=== PATIENT | female | born 1930 | race Caucasian/White ===

== ENCOUNTER 2017-02-07 21:53 | Emergency (ER) | payer MEDICARE, BC ==
[2017-02-07] MEDS ORDERED: FENTANYL PF 100MCG/2ML VIAL IVP ONE (22:06)
--- NOTE | 2017-02-07 22:11 | Emergency Department Record ---
History of Present Illness - General Chief Complaint: Fall Injury Stated Complaint: FALL Time Seen by Provider: 02/07/17 21:57 Source: Patient, Family, EMS Mode of Arrival: EMS Limitations: No limitations - History of Present Illness Initial Comments: 86 yo female presents after a fall. She reports that she was in the kitchen walking into the dining area and is unsure if she passed out as the incident occurred very quickly. She now has right hip pain and was unable to stand or get up. She was noted by EMS to have shortening and rotation of the hip. She did not hit her head for sure. No blood thinners or anti-coagulants. She denies any other injuries or pain except the right hip. No recent illness. PCP is Dr Lemon in [place]. Complaint: Fall Onset/Timin -: Hour(s) When Fall Occurred: Just prior to arrival, 1 hour [employer] Fall Witnessed: No Place Fall Occurred: Home Loss of Consciousness: None Prolonged Down Time?: No Symptoms Prior to Fall: None Location: Pelvis Location - Extremities: Right: Thigh Severity: Moderate Severity scale (1-10): 7 Context: Tripped/slipped - [place] Coma Scale Eye Response: (4) Open spontaneously Motor Response: (6) Obeys commands Verbal Response: (5) Oriented David Total: 15 - Related Data Allergies Allergy/AdvReac Type Severity Reaction Status Date / Time No Known Drug Allergies Allergy Verified 10/29/15 16:45 Travel Screening - Travel/Exposure Within Last 30 Days Have you traveled within the last 30 days?: No Review of Systems Constitutional: Denies: Chills, Fever, Malaise, Weakness Eyes: Denies: Eye discharge ENT: Denies: Congestion, Throat pain Respiratory: Denies: Cough, Dyspnea, Hemoptysis, Stridor, Wheezes Cardiovascular: Denies: Chest pain, Palpitations, Syncope Endocrine: Denies: Fatigue, Polydipsia, Polyuria Gastrointestinal: Denies: Abdominal pain, Diarrhea, Nausea, Vomiting Genitourinary: Denies: Dysuria, Urgency Musculoskeletal: Reports: As per HPI, Arthralgia Skin: Denies: Bruising, Change in color, Rash Neurological: Denies: Headache, Numbness, Weakness Psychiatric: Denies: Anxiety Hematological/Lymphatic: Denies: Blood Clots, Easy bleeding, Easy bruising, Swollen glands Past Medical History - SOCIAL HISTORY Smoking Status: Never smoker Alcohol Use: None Drug Use: None - RESPIRATORY Hx Respiratory Disorders: No - CARDIOVASCULAR Hx Cardio Disorders: No Hx Hypertension: Yes - NEURO Hx Neuro Disorders: Yes Hx Dizziness: Yes - GI Hx GI Disorders: Yes Hx Abdominal Pain: Yes Hx Irritable Bowel: Yes Hx Obstructive Bowel: Yes Hx Wt Loss/Wt Gain: Yes - Hx Genitourinary Disorders: No - ENDOCRINE Hx Endocrine Disorders: No Hx Diabetes: No Hx Thyroid Disease: No - MUSCULOSKELETAL Hx Musculoskeletal Disorders: Yes Hx Arthritis: Yes - PSYCH Hx Psych Problems: No - HEMATOLOGY/ONCOLOGY Hx Hematology/Oncology Disorders: No Family Medical History Any Significant Family History?: No Physical Exam - General General Appearance: Alert, Oriented x3, Cooperative, No acute distress Limitations: No limitations - Head Head exam: Atraumatic, Normocephalic, Normal inspection Head exam detail: negative: Abrasion, Contusion, General tenderness, Hematoma - Eye Eye exam: Normal appearance, PERRL. negative: Conjunctival injection, Periorbital swelling, Scleral icterus - ENT ENT exam: Normal exam. negative: Mucous membranes moist Ear exam: Normal external inspection Nasal Exam: Normal inspection Mouth exam: Normal external inspection - Neck Neck exam: Normal inspection, Full ROM. negative: Tenderness - Respiratory Respiratory exam: Normal lung sounds bilaterally. negative: Respiratory distress, Rhonchi, Stridor, Wheezes - Cardiovascular Cardiovascular Exam: Regular rate, Normal rhythm, Normal heart sounds Peripheral Pulses: 2+: Radial (R), Radial (L) - GI/Abdominal GI/Abdominal exam: negative: Soft, Tenderness - Rectal Rectal exam: Deferred - exam: Deferred - Extremities Extremities exam: Normal capillary refill, Tenderness. negative: Normal inspection, Full ROM Image of Full Body: 1 - tenderness with shortening and external rotation, pain with any ROM, NVI distal at the feet with intact CR, wiggles toes. - Back Back exam: Denies: CVA tenderness (R), CVA tenderness (L) - Neurological Neurological exam: Alert, Normal gait, Oriented X3 - Psychiatric Psychiatric exam: Normal affect, Normal mood - Skin Skin exam: Dry, Intact, Normal color, Warm Course Vital Signs 02/07/17 21:57 Temperature 98.1 F Pulse Rate 110 H Respiratory 18 Rate Blood Pressure 153/109 Pulse Ox 94 L - Reevaluation(s) Reevaluation #1: No acute changes on the CBC or CMP The CT scan demonstrates a right comminuted IT fracture of the hip. 02/07/17 22:49 Reevaluation #2: Message was left with Dr Hi of [facility] [place] Capone of at [facility]. He will admit at [facility]. No acute changes on the labs 02/07/17 22:53 EKG Atrial fibrillation, rate 140, intervals normal, axis left, ST NS changes 02/07/17 22:55 Reevaluation #3: HR 110's Tolerating Cardizem well [facility] called Patient room 469 EMS called 02/07/17 23:57 Medical Decision Making - Lab Data Result diagrams: 02/07/17 22:00 02/07/17 22:00 Disposition Disposition: Transfer Clinical Impression: Atrial fibrillation with RVR Hip fracture Qualifiers: Encounter type: initial encounter Fracture type: closed Laterality: right Qualified Code(s): S72.001A - Fracture of unspecified part of neck of right femur, initial encounter for closed fracture Atrial fibrillation Qualifiers: Atrial fibrillation type: unspecified Qualified Code(s): I48.91 - Unspecified atrial fibrillation Disposition: Acute Care Hospital Transfer Transfer To: [facility] Reason For Transfer: hip fracture, atrial fibrillation with RVR Accepting Physician: Liborio Time Discussed w/Accepting Physician: 23:00 Condition: (1) Good Forms: Patient Portal Access Time of Disposition: 23:00 Quality - Quality Measures Quality Measures: N/A - Blood Pressure Screening Does Patient Have Any of the Following: No Blood Pressure Classification: Hypertensive Reading Systolic Measurement: 153 Diastolic Measurement: 109 Screening for High Blood Pressure: < Pre-Hypertensive BP, F/U Documented > [ [id number]] Pre-Hypertensive Follow-up Interventions: Referral to alternative/primary care provider.
[2017-02-07 22:28] LABS: BASO % 0.8 % (0-6); EOS % 2.4 % (0-6); HEMATOCRIT 41.6 % (35.0-47.0); HEMOGLOBIN 13.9 gm/dl (11.6-16.0); LYMPH % 18.7 % (16-45); MEAN CELL VOLUME 87.4 fl (81-97); MEAN CORPUSCULAR HEMOGLOBIN 29.2 pg (27-33); MEAN CORPUSCULAR HGB CONC 33.4 g/dl (32-36); MEAN PLATELET VOLUME 10.4 fl (7.4-10.4); MONO % 12.1 % (0-9); PLATELET COUNT 276 K/uL (130-400); RED BLOOD COUNT 4.76 M/uL (3.80-5.40); RED CELL DISTRIBUTION WIDTH 13.2 % (11.5-14.5); WHITE BLOOD COUNT W/O DIFF 7.1 K/uL (4.2-12.2)
[2017-02-07 22:30] LABS: ALB/GLOB RATIO 1.5 (1.1-1.8); ALBUMIN 4.3 gm/dL (3.5-5.0); ALKALINE PHOSPHATASE 69 U/L (38-126); ALT/SGPT 40 U/L (9-52); ANION GAP 9.5 (7-16); AST/SGOT 27 U/L (14-36); BILIRUBIN,TOTAL 0.59 mg/dL (0.2-1.3); BLOOD UREA NITROGEN 14 mg/dL (7-17); CARBON DIOXIDE 29.5 mmol/L (22-30); CREATININE 1.1 mg/dL (0.52-1.04); EST GLOMERULAR FILTRATION RATE 50 ml/min; GLUCOSE,RANDOM 112 mg/dL (70-110); TOTAL PROTEIN 7.1 gm/dL (6.3-8.2)
[2017-02-07 22:38] LABS: INR 0.94; PROTHROMBIN TIME (PATIENT) 10.1 SECONDS (9.5-12.1)
[2017-02-07 22:46] LABS: TROPONIN I < 0.012 ng/mL (0.00-0.034)
[2017-02-07] MEDS ORDERED: DILTIAZEM 25MG/5ML VIAL IV ONE (22:57)
[2017-02-07] MEDS ORDERED: DILTIAZEM HCL 125 MG in 0.9 % SODIUM CHLORIDE 100ML 100 ML IV SCH (23:00)
[2017-02-07 23:24] LABS: ABO GROUP O; ANTIBODY SCREEN NEGATIVE (NEGATIVE); RH TYPE NEGATIVE
[2017-02-08] MEDS ORDERED: FENTANYL PF 100MCG/2ML VIAL IVP ONE (00:17)
--- NOTE | 2017-02-08 21:31 | CT SCAN REPORT ---
EXAM: CT SCAN HEAD WO CONTRAST HISTORY: FALL, SYNCOPE. COMPARISON: None. ENCOUNTER: Initial. HAND DOMINANCE: Right. TECHNIQUE: Contiguous axial images from the cerebral convexities to the foramen magnum were obtained without IV contrast. FINDINGS: Moderate generalized atrophy of the brain. No acute intracranial hemorrhage, mass effect, or midline shift. No CT evidence of large acute territorial infarct. Mild decreased attenuation in the periventricular white matter of the cerebral hemispheres. Ventricles, basal cisterns, and sulci are within normal limits. Osseous structures and paranasal sinuses are unremarkable. Bilateral lens implants. IMPRESSION: 1. NO ACUTE INTRACRANIAL PROCESS. 2. GENERALIZED ATROPHY OF THE BRAIN WITH MILD CHRONIC SMALL VESSEL ISCHEMIA CHANGE. JOB NUMBER: [id number] MTDD
--- NOTE | 2017-02-08 21:40 | CT SCAN REPORT ---
EXAM: CT SCAN PELVIS WO CONTRAST HISTORY: FALL, ACUTE RIGHT HIP INJURY AND PAIN. COMPARISON: None. ENCOUNTER: Initial. TECHNIQUE: Contiguous axial images from the L4 level to the proximal femora were obtained without contrast. S sagittal and coronal two-dimensional as well as 3D/MIP reformatted images were obtained for better anatomic delineation. 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 Advanced facet arthropathy L5-S1. Sacrum is intact. Mild arthritic change of the SI joints. Mild to moderate osteoarthritic change of the femoroacetabular joints, which are intact. There is a markedly comminuted, mildly displaced intertrochanteric fracture of the right femur. The visceral pelvis demonstrates severe calcification of the abdominal aorta. The visualized loops of small and large bowel are normal. The urinary bladder is markedly distended. No free pelvic fluid. IMPRESSION: 1. ACUTE, MARKEDLY COMMINUTED, MINIMALLY DISPLACED INTERTROCHANTERIC FRACTURE OF THE RIGHT FEMUR. 2. MILD TO MODERATE ARTHRITIC CHANGE OF THE FEMOROACETABULAR JOINTS. 3. MILD ARTHRITIC CHANGE OF THE SI JOINTS. JOB NUMBER: [id number] MTDD
== END 2017-02-08 00:49 | disposition short-term general hospital (02) ==
LOC: ER 21:53
DX: S72.141A Displaced intertrochanteric fracture of right femur, initial encounter for closed fracture (principal); I48.0 Paroxysmal atrial fibrillation; W01.0XXA Fall on same level from slipping, tripping and stumbling without subsequent striking against object, initial encounter; Y92.009 Unspecified place in unspecified non-institutional (private) residence as the place of occurrence of the external cause; I10 Essential (primary) hypertension
CPT/HCPCS: 99285 ×2; 96376; 96365; 96366; 96375; 85025; 85730; 85610; 84484; 80053; 86900; 86901; 86850; 70450; 72192; 93005; 93010; J3010 ×2

== ENCOUNTER 2017-08-14 09:39 | Observation (INO) | payer MEDICARE, BC ==
--- NOTE | 2017-08-14 10:07 | Emergency Department Record ---
History of Present Illness - General Chief Complaint: Dizziness Stated Complaint: DIZZINESS Time Seen by Provider: 08/14/17 09:54 Source: Patient Mode of Arrival: Wheelchair Limitations: No limitations - History of Present Illness Initial Comments: The patient is here due to feeling lightheaded for 24 hours. She feels like she is feeling mildly faint. There is no spinning or rotational sensation. The patient lives at [facility] and had her BP taken and it was elevated so she was sent to the ER. Presently her BP is improved at 190/100. She denies any fall, injury , Cp, SOB, PARUL, or fevers. The patient recently was on a low dose of Lisinopril but that was stopped 2 months ago. Complaint: Lightheadedness Onset/Timin -: Days(s) Timing: Unsure Description: Lightheadedness History of Same: No History of Trauma: No Improves With: Nothing Worsens With: Nothing Associated Symptoms: Denies other symptoms - [place] Coma Scale Eye Response: (4) Open spontaneously Motor Response: (6) Obeys commands Verbal Response: (5) Oriented [place] Total: 15 - Related Data Home Medications Medication Instructions Recorded Confirmed Last Taken Amiodarone HCl [Amiodarone HCl] 100 mg PO ASDIR 08/14/17 08/14/17 Unknown Apixaban [Eliquis] 2.5 mg PO BID 08/14/17 08/14/17 08/14/17 Ferrous Sulfate [Feosol] 325 mg PO DAILY 08/14/17 08/14/17 Unknown Allergies Allergy/AdvReac Type Severity Reaction Status Date / Time No Known Drug Allergies Allergy Verified 10/29/15 16:45 Travel Screening - Travel/Exposure Within Last 30 Days Have you traveled within the last 30 days?: No Review of Systems Constitutional: Denies: Chills, Fever Eyes: Denies: Eye discharge ENT: Denies: Congestion Respiratory: Denies: Cough, Dyspnea Past Medical History - SOCIAL HISTORY Smoking Status: Never smoker Alcohol Use: None Drug Use: None - RESPIRATORY Hx Respiratory Disorders: No - CARDIOVASCULAR Hx Cardio Disorders: Yes Hx Hypertension: Yes Hx Irregular Heartbeat: Yes (afib) - NEURO Hx Neuro Disorders: Yes Hx Dizziness: Yes - GI Hx GI Disorders: Yes Hx Abdominal Pain: Yes Hx Irritable Bowel: Yes Hx Obstructive Bowel: Yes Hx Wt Loss/Wt Gain: Yes - Hx Genitourinary Disorders: No - ENDOCRINE Hx Endocrine Disorders: No Hx Diabetes: No Hx Thyroid Disease: No - MUSCULOSKELETAL Hx Musculoskeletal Disorders: Yes Hx Arthritis: Yes - PSYCH Hx Psych Problems: No - HEMATOLOGY/ONCOLOGY Hx Hematology/Oncology Disorders: No Family Medical History Any Significant Family History?: No Physical Exam - General General Appearance: Alert, Oriented x3, Cooperative, No acute distress - Head Head exam: Atraumatic, Normocephalic, Normal inspection - Eye Eye exam: Normal appearance, PERRL - ENT Throat exam: Normal inspection. negative: Tonsillar erythema, Tonsillar exudate - Neck Neck exam: Normal inspection, Full ROM. negative: Tenderness - Respiratory Respiratory exam: Normal lung sounds bilaterally. negative: Respiratory distress - Cardiovascular Cardiovascular Exam: Regular rate, Normal rhythm, Normal heart sounds - GI/Abdominal GI/Abdominal exam: Soft, Normal bowel sounds. negative: Tenderness - Extremities Extremities exam: Normal inspection, Full ROM, Normal capillary refill. negative: Tenderness - Neurological Neurological exam: Alert. negative: Motor sensory deficit Course Vital Signs 08/14/17 09:43 Temperature 98.0 F Pulse Rate 61 Respiratory 16 Rate Blood Pressure 208/110 Pulse Ox 97 - Reevaluation(s) Reevaluation #1: The patient is doing better at this time. Her repeat Bp is 158/85 and she is able to get up and walk with minimal lightheadedness. I did explain that the lab tests are mildly abnormal regarding his cardiac enzymes so we will admit her to the hospital for monitoring and will recheck her lab tests. 08/14/17 11:28 Reevaluation #2: 2nd EKG: Poss Junctional rhythm at 57. Neg ischemic changes. 08/14/17 11:47 Reevaluation #3: The patient is doing very well at this time. I did discuss the need possibly for a pacemaker and the patient is not ready to make that decision at this time. She would like to be admitted to the hospital overnight and see Dr. Alcala tomorrow. I did discuss the fact that I am not sure if there will be any problems overnight but cannot be sure but the patient is sure that she does not want to go to a larger hospital now and just that she would like to see Dr. Alcala tomorrow. 08/14/17 11:52 Medical Decision Making - Data Complexity MDM Data: Labs Ordered and/or Reviewed, X-Ray Ordered and/or Reviewed, EKG Ordered and/or Reviewed - Lab Data Result diagrams: 08/14/17 10:05 08/14/17 10:05 - EKG Data -: EKG Interpreted by Me EKG: Abnormal EKG (Afib vs junctional rhythm. LVH with repolarization abnormalities.) - Radiology Data Radiology results: Report reviewed (CXR: No acute changes, multiple compression fx's Head CT: Neg for any acute changes.) Disposition Disposition: Admit Clinical Impression: Weakness generalized Disposition: Still a Patient at [facility] Decision to Admit: Admit from ER Decision to Admit Date: 08/14/17 Decision to Admit Time: 11:53 Accepting Physician: Sergio Rayo Discussed w/Accepting Physician: 11:54 Condition: (2) Stable Referrals: [facility] Specialty Clinics [Provider Group] Forms: Patient Portal Access Time of Disposition: 11:54 Quality - Quality Measures Quality Measures: N/A - Blood Pressure Screening View Details: Yes Does Patient Have Any of the Following: Active Dx of HTN Blood Pressure Classification: Hypertensive Reading Systolic Measurement: 208 Diastolic Measurement: 110 Screening for High Blood Pressure: Patient Exclusion, Hx of HTN [G9744]
[2017-08-14 10:32] LABS: HEMATOCRIT 45.5 % (35.0-47.0); HEMOGLOBIN 14.9 gm/dl (11.6-16.0); MEAN CELL VOLUME 84.6 fl (81-97); MEAN CORPUSCULAR HEMOGLOBIN 27.7 pg (27-33); MEAN CORPUSCULAR HGB CONC 32.7 g/dl (32-36); MEAN PLATELET VOLUME 10.6 fl (7.4-10.4); PLATELET COUNT 298 K/uL (130-400); RED BLOOD COUNT 5.38 M/uL (3.80-5.40); RED CELL DISTRIBUTION WIDTH 15.7 % (11.5-14.5); WHITE BLOOD COUNT W/O DIFF 3.9 K/uL (4.2-12.2)
[2017-08-14 10:39] LABS: PLATELET ESTIMATE NORMAL (NORMAL)
[2017-08-14 10:41] LABS: BLOOD UREA NITROGEN 8 mg/dL (8-23); CREATININE 0.9 mg/dL (0.5-0.9); EST GLOMERULAR FILTRATION RATE > 60 mL/min
[2017-08-14 10:44] LABS: GLUCOSE,RANDOM 90 mg/dL (74-109)
[2017-08-14 10:46] LABS: CREATINE PHOSPHOKINASE 68 U/L (26-192)
[2017-08-14 10:50] LABS: CKMB 4.3 ng/mL (<3.77)
[2017-08-14 10:57] LABS: PARTIAL THROMBOPLASTIN TIME 28.1 SECONDS (24.5-39.1)
[2017-08-14 11:00] LABS: THYROID STIMULATING HORMONE 4.47 uIU/mL (0.270-4.20)
[2017-08-14] MEDS ORDERED: ASPIRIN 325 MG TABLET PO ONE (11:54)
[2017-08-14 16:29] LABS: CKMB 3.6 ng/mL (<3.77)
--- NOTE | 2017-08-14 20:16 | History & Physical ---
History of Present Illness - Date of Service Date of Service for History & Physical: 08/14/17 - History of Present Illness Admitting Diagnosis: 1. Afib vs Junctional Rhythm with Dizziness. History of Present Illness: 87yo female with CC of elevated blood pressure and feeling faint. She has history of afib on anticoagulation and pacerone, HTN, IBS, osteoarthritis, and intermittent dizziness. The patient is here due to feeling lightheaded for 24 hours. She feels like she is feeling mildly faint. There is no spinning or rotational sensation. The patient lives at [facility] and had her BP taken and it was elevated so she was sent to the ER. In the ED, her initial BP was 208/110 with rate of 60. Her BP improved after laying down for several minutes. Her EKG showed old anterior Q waves with LVH, and new junctional rhythm. Her 1st set of CE returned with CKMB elevated at 4.3 and Troponin T at 0.011. Her TSH was slightly elevated at 4.47. CXR and CT head both negative for acute changes. Dr. Lawrence had discussed with patient and her daughter that we do not have cardiology currently present and if she needs intervention would have to be transferred. Patient and daughter were absolutely adamant about staying at [facility] and seeing Dr. Alcala, patient's dental therapist, in the morning. 08/14/17- Patient states she is feeling much better. her BP is currently 127/ 80 without any medication intervention and heart rate continues to be 60bpm. She says she is no longer feeling faint, denies headache, vision changes, one-sided or generalized weakness. She denies any chest pain presently or during the past 24H. She denies nausea, chest heaviness, or diaphoresis. There have been no changes in her mental status and she is capable of making her own medical decisions. Daughter has DPOA in the case she wasn't able to make her own decisions. Patient requests to be a DNR. dental therapist: Dr. Alcala Travel Screening - Travel/Exposure Within Last 30 Days Have you traveled within the last 30 days?: No - Travel/Exposure Within Last Year Have you traveled outside the [place] in the last year?: No - Additonal Travel Details Have you been exposed to anyone with a communicable illness?: No - Travel Symptoms Symptom Screening: None Review of Systems Constitutional: Denies: Chills, Fever Eyes: Denies: Eye discharge ENT: Denies: Congestion Respiratory: Denies: Cough, Dyspnea Cardiovascular: Denies: Chest pain Gastrointestinal: Denies: Nausea Neurological: Reports: Vertigo (h/o ), Other (reported pre-syncope). Denies: Abnormal gait, Confusion, Headache, Numbness, Paresthesias, Tingling, Weakness Past Medical History - SOCIAL HISTORY Smoking Status: Never smoker Alcohol Use: None Drug Use: None - RESPIRATORY Hx Respiratory Disorders: No - CARDIOVASCULAR Hx Cardio Disorders: Yes Hx Hypertension: Yes Hx Irregular Heartbeat: Yes (afib) - NEURO Hx Neuro Disorders: Yes Hx Dizziness: Yes - GI Hx GI Disorders: Yes Hx Abdominal Pain: Yes Hx Irritable Bowel: Yes Hx Obstructive Bowel: Yes Hx Wt Loss/Wt Gain: Yes - Hx Genitourinary Disorders: No - ENDOCRINE Hx Endocrine Disorders: No - MUSCULOSKELETAL Hx Musculoskeletal Disorders: Yes Hx Arthritis: Yes - PSYCH Hx Psych Problems: No - HEMATOLOGY/ONCOLOGY Hx Hematology/Oncology Disorders: No Family Medical History Any Significant Family History?: No H&P Meds/Allergies - Allergies Allergies: Allergies Allergy/AdvReac Type Severity Reaction Status Date / Time No Known Drug Allergies Allergy Verified 10/29/15 16:45 - Home Medications Home Medications Medication Instructions Recorded Confirmed Last Taken Amiodarone HCl [Amiodarone HCl] 100 mg PO ASDIR 08/14/17 08/14/17 Unknown Apixaban [Eliquis] 2.5 mg PO BID 08/14/17 08/14/17 08/14/17 Ferrous Sulfate [Feosol] 325 mg PO DAILY 08/14/17 08/14/17 Unknown Loperamide HCl [Loperamide] 2 mg PO QID PRN 08/14/17 08/14/17 Unknown Potassium Chloride [Klor-Con] 20 meq PO QAM 08/14/17 08/14/17 Unknown - Active Medications Active Medications: Current Medications Amiodarone HCl (Pacerone) 100 mg PO DAILY [facility] Apixaban (Eliquis) 2.5 mg PO BID [facility] Aspirin (Ecotrin (Ec)) 325 mg PO DAILY [facility] Ferrous Sulfate (Iron) 325 mg PO DAILY [facility] Gabapentin (Neurontin) 300 mg PO BID [facility] Gabapentin (Neurontin) 100 mg PO BID [facility] Meclizine HCl (Antivert) 25 mg PO BID [facility] Physical Exam - Vital Signs Vital Signs: Vital Signs - Last 24 Hrs Pulse Resp BP 08/14/17 16:00 60 127/80 08/14/17 15:53 16 - General General Appearance: Alert, Oriented x3, Cooperative, No acute distress Limitations: No limitations - Head Head exam: Atraumatic, Normocephalic, Normal inspection - Eye Eye exam: Normal appearance, PERRL - ENT Throat exam: Normal inspection. negative: Tonsillar erythema, Tonsillar exudate - Neck Neck exam: Normal inspection, Full ROM. negative: Tenderness - Respiratory Respiratory exam: Normal lung sounds bilaterally. negative: Respiratory distress - Cardiovascular Cardiovascular Exam: Normal rhythm, Normal heart sounds, Bradycardia - GI/Abdominal GI/Abdominal exam: Soft, Normal bowel sounds. negative: Tenderness - Extremities Extremities exam: Normal inspection, Full ROM, Normal capillary refill. negative: Tenderness - Neurological Neurological exam: Alert. negative: Motor sensory deficit Results - Labs Result Diagrams: 08/14/17 10:05 08/14/17 10:05 Labs Last 24 Hours: Laboratory Results - last 24 hr 08/14/17 16:00 CK-MB (CK-2) 3.6 Troponin T 0.014 H VTE H&P Assessment - Risk for VTE Risk for VTE: Yes Risk Level: High Risk Assessment Date: 08/14/17 Risk Assessment Time: 21:27 VTE Orders Placed or Will Be Placed: Yes Plan - Detailed Diagnosis and Plan (1) Pre-syncope Current Visit: Yes Status: Acute Base Code: R55 - SYNCOPE AND COLLAPSE Comment: 08/14/17- resolving. Patient reportedly felt faint and that is why her BP had been checked in the first place. She denies any headache, vision changes , chest pain, PARUL, weakness, numbness. CT head and CXR were negative for acute changes. EKG showed possible new junctional rhythm with rate of 60bpm. She had her 1st set of CE return with CKMG of 4.3 and Troponin T of 0.011. -continue tele -continue serial enzymes -consult cardiology (2) Acute electrocardiogram changes Current Visit: No Status: Acute Base Code: R94.31 - ABNORMAL ELECTROCARDIOGRAM [ECG] [EKG] Comment: 08/14/17- reviewed old studies available. Had holter performed about one year ago 2/2 episodic dizziness. She had no monitor changes related to her symptoms during that study. About 6 months ago, she presented to our ED for a fall due to dizziness and EKG at that time showed afib with vent rate of 140. she was transferred for orthopedic surgery at that time and has been following with Cardiology since that visit. Today her EKG shows old anterior Q waves and LVH with possible junctional rhythm rate of 57. Amiodorone was added to her medications since her last visit -Patient's dental therapist, Dr. Alcala, is out to [facility] tomorrow and patient wishes to stay at [facility] and be seen by him tomorrow. (3) Chronic hypertension Current Visit: No Status: Acute Base Code: I10 - ESSENTIAL (PRIMARY) HYPERTENSION Priority: High Comment: 08/14/17-improving. BP of 127/80 at time of exam down from 208/110 from earlier today without any medication interventions. Her lisinopril had been discontinued several months ago. -continue to monitor BP q8H (4) DVT prophylaxis Current Visit: Yes Status: Acute Base Code: [id number] - Comment: 08/14/17- patient anticoagulated with eliquis 2.5mg po bid -will continue home medication (5) DNR (do not resuscitate) Current Visit: Yes Status: Acute Base Code: Z66 - DO NOT RESUSCITATE Comment: 08/14/17- Patient request DNR.
[2017-08-14] MEDS: GABAPENTIN 300 MG CAPSULE PO SCH (21:04)
[2017-08-14] MEDS: MECLIZINE 25 MG TABLET PO SCH (21:04)
[2017-08-14] MEDS: GABAPENTIN 100 MG CAPSULE PO SCH (21:05)
[2017-08-14] MEDS ORDERED: APIXABAN 2.5MG TABLET PO SCH (22:00)
[2017-08-15 00:38] LABS: CKMB 3.2 ng/mL (<3.77)
--- NOTE | 2017-08-15 07:28 | RADIOLOGY REPORT ---
EXAM: CHEST, TWO VIEWS HISTORY: VERTIGO, WEAK. TECHNIQUE: AP and lateral views of the chest were obtained. Comparison: Two view chest 05/31/16. FINDINGS: The heart size is within normal limits. Calcification and mild torsion of the aorta. The lungs appear hyperinflated suggesting underlying COPD. When comparison is made with the prior study, no definite acute infiltrate is seen. No pleural effusion or pneumothorax evident. Compression factures involving the bodies of T8, T9, and T12, with some progression in the T8 vertebral fracture compared with the prior study. IMPRESSION: 1. HYPERINFLATION CONSISTENT WITH COPD. NO DEFINITE ACUTE INFILTRATE IS SEEN. 2. CHRONIC COMPRESSION FRACTURES OF T9 AND T12. MODERATE PROGRESSION IN COMPRESSION OF THE BODY OF T8 COMPARED WITH THE PRIOR STUDY. JOB NUMBER: [id number] MTDD
--- NOTE | 2017-08-15 07:32 | CT SCAN REPORT ---
EXAM: EMERGENCY HEAD CT WITHOUT CONTRAST HISTORY: DIZZINESS. TECHNIQUE: Axial CT scan of the head was performed without IV contrast. Comparison: Head CT 02/07/17. FINDINGS: No definite acute intracranial hemorrhage identified. No focal mass effect or midline shift apparent. Moderate generalized atrophy as before. Chronic appearing deep white matter changes again seen, nonspecific, but likely representing some chronic small vessel deep white matter ischemic disease. No definite acute infarct or intracranial mass lesion is seen. No depressed calvarial fracture is evident. IMPRESSION: 1. GENERALIZED ATROPHY WITH CHRONIC APPEARING DEEP WHITE MATTER CHANGES BEFORE. 2. NO DEFINITE ACUTE INTRACRANIAL HEMORRHAGE OR FOCAL MASS EFFECT IDENTIFIED. JOB NUMBER: [id number] [facility]
[2017-08-15] MEDS: GABAPENTIN 100 MG CAPSULE PO SCH (09:39)
[2017-08-15] MEDS: GABAPENTIN 300 MG CAPSULE PO SCH (09:39)
[2017-08-15] MEDS: MECLIZINE 25 MG TABLET PO SCH (09:39)
[2017-08-15] MEDS ORDERED: AMIODARONE HCL 200 MG TABLET PO SCH ×2 (10:00)
[2017-08-15] MEDS ORDERED: ASPIRIN 325 MG TAB ENTERIC-COATED PO SCH (10:00)
[2017-08-15] MEDS ORDERED: FERROUS SULFATE 325 MG TAB PO SCH (10:00)
--- NOTE | 2017-08-15 11:10 | Discharge Summary ---
Providers Discharge Summary Date: 08/15/17 Date of admission: 08/14/17 13:27 Expected Date of Discharge: 08/15/17 Attending physician: SYDNIE SUN Primary care physician: RACHID JIMENEZ D.O. Physical Exam - Vital Signs Vital Signs: Vital Signs - Last 24 Hrs Temp Pulse Pulse Resp BP Pulse Ox 08/15/17 11:00 76 20 94 L 08/15/17 10:00 97.7 F 60 16 132/68 96 08/15/17 08:00 97.5 F L 53 L 16 162/79 94 L 08/15/17 07:41 50 L 08/15/17 03:34 97.5 F L 48 L 15 192/81 98 08/14/17 22:30 95 08/14/17 20:23 60 16 08/14/17 16:00 60 127/80 08/14/17 15:53 16 - General General Appearance: Alert, Oriented x3, Cooperative, No acute distress Limitations: No limitations - Head Head exam: Atraumatic, Normocephalic, Normal inspection - Eye Eye exam: Normal appearance, PERRL - ENT Throat exam: Normal inspection. negative: Tonsillar erythema, Tonsillar exudate - Neck Neck exam: Normal inspection, Full ROM. negative: Tenderness - Respiratory Respiratory exam: Normal lung sounds bilaterally. negative: Respiratory distress - Cardiovascular Cardiovascular Exam: Normal rhythm, Normal heart sounds, Bradycardia - GI/Abdominal GI/Abdominal exam: Soft, Normal bowel sounds. negative: Tenderness - Extremities Extremities exam: Normal inspection, Full ROM, Normal capillary refill. negative: Tenderness - Neurological Neurological exam: Alert. negative: Motor sensory deficit Hospitalization - Hospitalization Admission Diagnosis: 1. Afib vs Junctional Rhythm with Dizziness. - Problem List/Discharge Diagnosis (1) Pre-syncope Status: Acute Base Code: R55 - SYNCOPE AND COLLAPSE Comment: 08/15/17- currently asymptomatic. Her rn document improvement specialist evaluated patijamie today and recommends transfer for placement of pacemaker. -acute care transfer to [facility] (2) Acute electrocardiogram changes Status: Acute Base Code: R94.31 - ABNORMAL ELECTROCARDIOGRAM [ECG] [EKG] Comment: 08/15/17- Patient transferring to [facility] for symptomatic junctional rhythm with goal of pacemaker placement. She is currently asymptomatic and heart rate is stable at 57-60bpm, bp 132/68mmhg. (3) Chronic hypertension Status: Acute Base Code: I10 - ESSENTIAL (PRIMARY) HYPERTENSION Comment: -improving without medication intervention. -continue to monitor BP (4) DVT prophylaxis Status: Acute Base Code: [id number] - Comment: 08/15/17- patient anticoagulated with eliquis 2.5mg po bid -holding medication for pacemaker placement today (5) DNR (do not resuscitate) Status: Acute Base Code: Z66 - DO NOT RESUSCITATE Comment: 08/15/17- Patient request DNR. - Hospitalization Course Disposition: [facility] Transfer Abnormal Labs: Abnormal Lab Results 08/14/17 08/15/17 Range/Units 16:00 00:05 Troponin T 0.014 H 0.017 H (0-0.010) ng/mL Condition at Discharge: (2) Stable Discharge Medications - Discharge Medications Home Medications: Ambulatory Orders Gabapentin [Neurontin] 400 mg PO BID 11/24/14 [Last Taken 08/14/17] Meclizine HCl [Antivert] 25 mg PO DAILY 11/24/14 [Last Taken 08/14/17] Amiodarone HCl 100 mg PO ASDIR 08/14/17 [Last Taken Unknown] Ferrous Sulfate [Feosol] 325 mg PO DAILY 08/14/17 [Last Taken Unknown] Loperamide HCl [Loperamide] 2 mg PO QID PRN 08/14/17 [Last Taken Unknown] Potassium Chloride [Klor-Con] 20 meq PO QAM 08/14/17 [Last Taken Unknown] Apixaban [Eliquis] 2.5 mg PO BID #0 08/15/17 [Last Taken 08/14/17] Discharge Plan - Discharge Instructions Quality Measures - Quality Measures Quality Measures: Advance Directives, Documentation of Current Medications in Medical Record, Elder Maltreatment Screen and Follow-Up Plan, Screening for High Blood Pressure and F/U Documented - Current Medications Quality Measure: Measure #130: Documentation of Current Medications Documentation of Current Medications: <Current Medications Documented/Reviewed> [G8427] - Blood Pressure Screening Quality Measure: Screening for High Blood Pressure and Follow-Up Documented Does Patient Have Any of the Following: Active Dx of HTN Blood Pressure Classification: Hypertensive Reading Systolic Measurement: 208 Diastolic Measurement: 110 Screening for High Blood Pressure: Patient Exclusion, Hx of HTN [G9744] - Advance Directives Quality Measure: Measure #47: Care Plan Advance Directives Established: Yes Advance Directives Information Provided To Patient: No Advance Directives on File: Yes Living Will: Yes Power of Art Historian: Yes Power of Art Historian Name: nargis knight Advance Care Planning: <Care Plan/Decision Maker Documented; Discussed & Documented> [1123F] - Elder Abuse Suspicion Index Screening: Elder Abuse Suspicion Index Screening Rely on people for bathing, dressing, shopping, banking, etc: No Prevented from getting food, clothes, medication, etc: No Made to feel shamed or threatened by someone: No Forced to sign papers or use money against will: No Feel afraid, touched in ways not wanted or hurt physically: No Poor eye contact, withdrawn, malnourished, cuts or bruises: No Screening Result: Negative result EASI Reference Information: Diana SHUKLA, Jeremiah C, Kim D, Linden Skaggs.Development and validation of a tool to assist physicians identification of elder abuse: The Elder Abuse Suspicion Index (EASI ). Journal of Elder Abuse and Neglect, 2008; 20 (3): 276-300. - Elder Maltreatment Screen Quality Measures: Elder Maltreatment Screen and Follow-Up Plan Elder Maltreatment Screen: <Negative, No Follow-Up Plan Required> [G4237]
--- NOTE | 2017-08-15 20:06 | Medical Records Consult ---
DATE OF CONSULTATION: INDICATION: DIZZINESS, BRADYCARDIA, HISTORY OF ATRIAL FIBRILLATION. HISTORY: Most of the information was obtained from the chart. Family members weren't available. The patient has some memory issues. Esperanza Turcios is an 87- year-old female who presented to the [facility] feeling faint. She has a history of a-fib. She has been on Amiodarone 100 mg three times a week. She was on a beta-jolynn prior but that was discontinued due to bradycardia. She has really been fatigued and lightheaded for a few months. She saw the Electrophysiology Service last fall. They recommended that if she continued to show junctional arrhythmias, bradycardia, that she would likely need a pacemaker. There was a question about stopping her Amiodarone but at 100 mg just three times a week, I am not sure that's contributing much to her bradycardia. Her CPK-MB was mildly elevated and troponin was indeterminate. EKG showed junctional rhythm. There is a telemetry strip showing significant bradycardia with significant pauses. The patient was lightheaded during some of these episodes. PAST MEDICAL HISTORY: Heart failure with preserved ejection fraction. Paroxysmal atrial fibrillation. Peripheral vascular disease in the form of mild nonobstructive carotic artery disease. Her last echo in January showed normal LV function, likely diastolic heart failure, mild mitral regurgitation. This was January of 2017. MEDICATIONS: Loperamide 2 mg tablet p.r.n. Gabapentin 400 mg p.o. b.i.d. Meclizine 25 mg daily Iron supplements one daily Eliquis 2.5 mg p.o. b.i.d. She has not been given Eliquis this morning. Her last dose was . Amiodarone 100 mg Friday, Friday, and Friday. SOCIAL HISTORY: Noncontributory. Never smoked. FAMILY HISTORY: Noncontributory. REVIEW OF SYSTEMS: Difficult to some memory issues but she denies any chest pain. Her major complaint was dizziness and fatigue. She denies any cough. No fevers, chills, night sweats. No diarrhea, constipation. No urinary complaints. PHYSICAL EXAMINATION: Vital Signs: Temperature 97.5. Pulse 48. Blood pressure 192/81. Respirations 15. 98% on room air. GENERAL: Alert, in no apparent distress. HEENT: Normocephalic/atraumatic. NECK: Supple. No JVD. No carotid bruits are appreciated. PULMONARY: Clear to auscultation. Poor inspiratory effort. CARDIAC: Bradycardic. Soft 1/6 systolic ejection murmur. ABDOMEN: Nontender, nondistended. Positive bowel sounds. EXTREMITIES: No edema. NEUROLOGIC: Speech is clear. Memory is an issue. LABORATORY: See EMR for complete details. Again, CPK-MB 3.6. Troponin was 0.014. Sodium 140. Potassium 3.6. BUN 8. Creatinine 0.9. White blood cell 3.9. Hemoglobin 14.9. Hematocrit 45.5. Platelets 298. ASSESSMENT/PLAN: SYMPTOMATIC BRADYCARDIA: She likely has a sick sinus syndrome with her paroxysmal a-fib. The only rate-controlling medicine she is on is her Amiodarone but it's a very low dose, 100 mg three times a week, and is not a new medication. I think at this point, she is willing to have a pacemaker placed and I think it would be appropriate at this time. Again, she has not had an Eliquis dose since . That will be continued to be held until her pacemaker is placed, obviously. We will arrange for transfer to [facility]. JOB NUMBER: [id number] [facility]
== END 2017-08-15 11:55 | disposition short-term general hospital (02) ==
LOC: ER 09:39 → MEDSURG 13:27
PROVIDERS: ADMIT Internal Medicine; ATTEND Internal Medicine
DX: I48.0 Paroxysmal atrial fibrillation (principal); I49.2 Junctional premature depolarization; R94.31 Abnormal electrocardiogram [ECG] [EKG]; I50.9 Heart failure, unspecified; R55 Syncope and collapse; R42 Dizziness and giddiness; R53.1 Weakness; I10 Essential (primary) hypertension; M19.90 Unspecified osteoarthritis, unspecified site; Z79.01 Long term (current) use of anticoagulants; K58.9 Irritable bowel syndrome, unspecified
CPT/HCPCS: 99285 ×2; 82550; 85730; 85610; 82553 ×2; 80048; 84443; 84484 ×2; 85027; 71046; 70450; 94760 ×2; 93005 ×2; 93010; G0378 ×2; J3490; 99223; 99233

== ENCOUNTER 2018-01-08 10:08 | Emergency (ER) | payer MEDICARE, BC ==
--- NOTE | 2018-01-08 10:33 | Emergency Department Record ---
History of Present Illness - General Chief Complaint: Fall Injury Stated Complaint: FALL Time Seen by Provider: 01/08/18 10:23 Source: Patient, EMS Mode of Arrival: EMS Limitations: No limitations - History of Present Illness Initial Comments: The patient is here due to a slip and fall at [facility] about 30 minutes ago. She states she got up from the sitting position to fast and then felt minimally dizzy and fell on her R side onto her R hip. She has had that hip replaced in the past. The patient also hit her R lateral supraorbital area on the carpeted floor. There was no LOC and she denies any HO, neck pain, lightheadedness or Cp. The patient does have R hip pain ONLY with movement. MD Complaint: Fall Onset/Timin -: Minutes(s) Fall From: Standing When Fall Occurred: Just prior to arrival Fall Witnessed: Yes, by living facility staff Loss of Consciousness: None Prolonged Down Time?: No Symptoms Prior to Fall: Dizziness Location: Head, Other Severity: Mild Context: Other Associated Symptoms: Denies - David Coma Scale Eye Response: (4) Open spontaneously Motor Response: (6) Obeys commands Verbal Response: (5) Oriented David Total: 15 - Related Data Home Medications Medication Instructions Recorded Confirmed Last Taken Carvedilol [Coreg] 3.125 mg PO BID 01/08/18 01/08/18 01/08/18 Previous Rx's Medication Instructions Recorded Apixaban [Eliquis] 2.5 mg PO BID #0 08/15/17 Acetaminophen [Tylenol 325Mg] 650 mg PO Q6H #25 tablet 01/08/18 Nitrofurantoin Bingham [Macrobid] 100 mg PO BID #14 capsule 01/08/18 Allergies Allergy/AdvReac Type Severity Reaction Status Date / Time No Known Drug Allergies Allergy Verified 01/08/18 10:20 Travel Screening - Travel/Exposure Within Last 30 Days Have you traveled within the last 30 days?: No - Travel/Exposure Within Last Year Have you traveled outside the [place] in the last year?: No - Additonal Travel Details Have you been exposed to anyone with a communicable illness?: No - Travel Symptoms Symptom Screening: None Review of Systems Constitutional: Denies: Chills, Fever Eyes: Denies: Eye discharge ENT: Denies: Congestion Respiratory: Denies: Cough, Dyspnea Past Medical History - SOCIAL HISTORY Smoking Status: Never smoker Alcohol Use: None Drug Use: None - RESPIRATORY Hx Respiratory Disorders: No - CARDIOVASCULAR Hx Cardio Disorders: Yes Hx Hypertension: Yes Hx Irregular Heartbeat: Yes (afib) - NEURO Hx Neuro Disorders: Yes Hx Dizziness: Yes - GI Hx GI Disorders: Yes Hx Abdominal Pain: Yes Hx Irritable Bowel: Yes Hx Obstructive Bowel: Yes Hx Wt Loss/Wt Gain: Yes - Hx Genitourinary Disorders: No - ENDOCRINE Hx Endocrine Disorders: No Hx Diabetes: No Hx Thyroid Disease: No - MUSCULOSKELETAL Hx Musculoskeletal Disorders: Yes Hx Arthritis: Yes - PSYCH Hx Psych Problems: No - HEMATOLOGY/ONCOLOGY Hx Hematology/Oncology Disorders: No Family Medical History Any Significant Family History?: No Physical Exam - General General Appearance: Alert, Oriented x3, Cooperative, No acute distress - Head Head exam: Atraumatic, Normocephalic, Normal inspection Image of Face/Head: 1 - Very superficial laceration with no swelling or bony tenderness. - Eye Eye exam: PERRL, EOMI. negative: Normal appearance - Neck Neck exam: Normal inspection, Full ROM. negative: Lymphadenopathy, Tenderness ( There is no Cspine tenderness.) - Respiratory Respiratory exam: Normal lung sounds bilaterally. negative: Respiratory distress - Cardiovascular Cardiovascular Exam: Regular rate, Normal rhythm, Normal heart sounds - GI/Abdominal GI/Abdominal exam: Soft, Normal bowel sounds. negative: Tenderness - Extremities Extremities exam: Normal inspection, Normal capillary refill. negative: Full ROM, Joint swelling, Pedal edema, Tenderness - Neurological Neurological exam: Alert. negative: Motor sensory deficit Course Vital Signs 01/08/18 10:22 Temperature 98.1 F Pulse Rate 72 Respiratory 18 Rate Blood Pressure 223/114 Pulse Ox 96 - Reevaluation(s) Reevaluation #1: The patient is doing very well at this time. She denies any HO, neck pain, back pain or hip pain and is up walking normally with her walker. I did discuss the neg xrays with her and the need for F/U if not better. I also did discuss the UTI from the [facility] 3 days ago and we will start her on Macrobid at [facility]. 01/08/18 11:41 Reevaluation #2: I also did discuss the patient's HTN with her and the need to have the BP rechecked next week. 01/08/18 12:03 Medical Decision Making - Lab Data Result diagrams: 01/08/18 10:00 01/08/18 10:00 Disposition Disposition: Discharge Clinical Impression: Cystitis Contusion, hip Qualifiers: Encounter type: initial encounter Laterality: right Qualified Code(s): S70.01XA - Contusion of right hip, initial encounter Disposition: Home, Self-Care Condition: (2) Stable Instructions: Urinary Tract Infection in Women (ED), Fall Prevention for Older Adults (ED) Additional Instructions: Please continue the Tylenol for pain and take the Macrobid as directed. Please use your walker at all times and return to the ER for any worsening symptoms. Please have your blood pressure rechecked next week and contact your PCP if elevated. Prescriptions: Acetaminophen [Tylenol 325Mg] 650 mg PO Q6H #25 tablet Nitrofurantoin Bingham [Macrobid] 100 mg PO BID #14 capsule Forms: Patient Portal Access Time of Disposition: 11:45 Quality - Quality Measures Quality Measures: N/A - Blood Pressure Screening View Details: Yes Does Patient Have Any of the Following: Active Dx of HTN Blood Pressure Classification: Hypertensive Reading Systolic Measurement: 223 Diastolic Measurement: 114 Screening for High Blood Pressure: Patient Exclusion, Hx of HTN [G9744]
[2018-01-08 10:42] LABS: HEMOGLOBIN 14.6 gm/dl (11.6-16.0); MEAN CELL VOLUME 84.6 fl (81-97); MEAN CORPUSCULAR HEMOGLOBIN 27.4 pg (27-33); MEAN CORPUSCULAR HGB CONC 32.4 g/dl (32-36); MEAN PLATELET VOLUME 10.1 fl (7.4-10.4); PLATELET COUNT 331 K/uL (130-400); RED BLOOD COUNT 5.32 M/uL (3.80-5.40); RED CELL DISTRIBUTION WIDTH 14.7 % (11.5-14.5); WHITE BLOOD COUNT W/O DIFF 6.9 K/uL (4.2-12.2)
[2018-01-08 10:55] LABS: PARTIAL THROMBOPLASTIN TIME 28.8 SECONDS (24.5-39.1); PLATELET ESTIMATE NORMAL (NORMAL); PROTHROMBIN TIME (PATIENT) 10.7 SECONDS (9.5-12.1)
[2018-01-08 10:57] LABS: BLOOD UREA NITROGEN 8 mg/dL (8-23); CREATININE 0.7 mg/dL (0.5-0.9); EST GLOMERULAR FILTRATION RATE > 60 mL/min
[2018-01-08 11:00] LABS: GLUCOSE,RANDOM 78 mg/dL (74-109)
[2018-01-08] MEDS: ACETAMINOPHEN 325 MG TAB PO ONE (11:00)
[2018-01-08] MEDS: Diph,Pert(Acell),Tet Vac 0.5 ML SYR IM ONE (11:00)
--- NOTE | 2018-01-11 12:02 | RADIOLOGY REPORT ---
DATE: 01/08/2018 at 10:47 a.m. EXAM: RIGHT HIP WITH AP PELVIS. HISTORY: Patient fell on right hip today with right hip tenderness. TECHNIQUE: AP pelvis, AP lateral right hip including the entire femur because of the presence of a long intramedullary angeli extending through the majority of the length of the femur. COMPARISON: No prior pelvis or right hip series with which to compare. ENCOUNTER: Initial. FINDINGS: The patient is postoperative intramedullary angeli placement extending from the level of the greater trochanter down to just above the knee joint, with transfixing compression screw extending across the right femoral neck into the femoral head. There is some mild deformity of the region of the lesser trochanter and upper femoral shaft laterally, likely representing an old, healed fracture at this site. Comparison with any old films would be useful to confirm if this deformity seen is all chronic in nature. Allowing for this, no actual acute fracture identified in the right hip, and no dislocation is evident. No fracture of the more distal aspect of the femur evident as well. Diffuse osteopenia consistent with osteoporosis. Degenerative change in the lower lumbar spine. IMPRESSION: 1. OSTEOPOROSIS. 2. OLD PROXIMAL FEMORAL FRACTURE WITH INTRAMEDULLARY ANGELI AND COMPRESSION SCREW FIXATION. 3. DEFORMITY OF THE REGION OF THE LESSER TROCHANTER AND LATERAL ASPECT OF THE UPPER FEMORAL SHAFT IS LIKELY ALL RELATED TO OLD, HEALED FRACTURE. COMPARISON WITH OLD FILMS WOULD BE USEFUL. ALLOWING FOR THIS, NO DEFINITE ACUTE FRACTURE OR DISLOCATION OF THE RIGHT HIP EVIDENT. JOB NUMBER: [id number] [facility]
--- NOTE | 2018-01-11 12:11 | CT SCAN REPORT ---
DATE: 01/08/2018 at 10:41 a.m. EXAM: EMERGENCY HEAD CT. HISTORY: Patient fell and hit head. Dizzy. TECHNIQUE: Axial CT scan of the head performed without intravenous contrast. COMPARISON: Head CT dated 08/14/2017. ENCOUNTER: Initial. FINDINGS: No definite acute intracranial hemorrhage identified. No focal mass effect or midline shift apparent. Moderate generalized atrophy as before. Chronic-appearing deep white matter changes also again seen, nonspecific but likely representing some chronic small-vessel deep white matter ischemic disease. No definite acute infarct or intracranial mass lesion is seen. No depressed calvarial fracture evident. IMPRESSION: 1. NO DEFINITE ACUTE INTRACRANIAL HEMORRHAGE OR FOCAL MASS EFFECT EVIDENT. 2. GENERALIZED ATROPHY WITH CHRONIC-APPEARING DEEP WHITE MATTER CHANGES BEFORE. JOB NUMBER: [id number] [facility]
== END 2018-01-08 12:05 | disposition home or self-care (01) ==
LOC: ER 10:08
DX: S01.111A Laceration without foreign body of right eyelid and periocular area, initial encounter (principal); S70.01XA Contusion of right hip, initial encounter; N30.00 Acute cystitis without hematuria; R42 Dizziness and giddiness; R51 Headache; I10 Essential (primary) hypertension; I48.91 Unspecified atrial fibrillation; W17.89XA Other fall from one level to another, initial encounter; Y92.129 Unspecified place in nursing home as the place of occurrence of the external cause; Z79.01 Long term (current) use of anticoagulants
CPT/HCPCS: 12011; 70450; 80048; 85027; 85610; 85730; 90715; 96372; 99283; 99284

== ENCOUNTER 2018-01-08 17:31 | Emergency (ER) | payer MEDICARE, BC ==
--- NOTE | 2018-01-08 17:40 | Emergency Department Record ---
History of Present Illness - General Chief Complaint: Laceration(s) Stated Complaint: LAC ON HEAD Time Seen by Provider: 01/08/18 17:35 Source: Patient Mode of Arrival: Wheelchair Limitations: No limitations - History of Present Illness Initial Commments: The patient is here due to a superficial lac to her R supraorbital area which has continued to bleed today. She was here earlier due to a fall and had a neg head CT. The patient is on Eliquis. After discharge the lac had been steri- stripped and was not bleeding at discharge but then at home did start up with bleeding. The patient denies any HO or new issues. Onset/Timin -: Hour(s) - Related Data Hx Tetanus Toxoid Vaccination: Yes Year of Tetanus Vaccination: 2003 Previous Rx's Medication Instructions Recorded Apixaban [Eliquis] 2.5 mg PO BID #0 08/15/17 Acetaminophen [Tylenol 325Mg] 650 mg PO Q6H #25 tablet 01/08/18 Nitrofurantoin Clinch [Macrobid] 100 mg PO BID #14 capsule 01/08/18 Allergies Allergy/AdvReac Type Severity Reaction Status Date / Time No Known Drug Allergies Allergy Verified 01/08/18 17:38 Review of Systems Constitutional: Denies: Chills, Fever Past Medical History - SOCIAL HISTORY Smoking Status: Never smoker Drug Use: None - RESPIRATORY Hx Respiratory Disorders: No - CARDIOVASCULAR Hx Cardio Disorders: Yes Hx Hypertension: Yes Hx Irregular Heartbeat: Yes (afib) - NEURO Hx Neuro Disorders: Yes Hx Dizziness: Yes - GI Hx GI Disorders: Yes Hx Abdominal Pain: Yes Hx Irritable Bowel: Yes Hx Obstructive Bowel: Yes Hx Wt Loss/Wt Gain: Yes - Hx Genitourinary Disorders: No - ENDOCRINE Hx Endocrine Disorders: No Hx Diabetes: No Hx Thyroid Disease: No - MUSCULOSKELETAL Hx Musculoskeletal Disorders: Yes Hx Arthritis: Yes - PSYCH Hx Psych Problems: No - HEMATOLOGY/ONCOLOGY Hx Hematology/Oncology Disorders: No Physical Exam - General General Appearance: Alert, Oriented x3, Cooperative, No acute distress - Head Head exam: Normocephalic, Normal inspection. negative: Atraumatic (There are 2 very superficial lacerations just superior and lateral to the lateral R eyebrow. There is no swelling and presently no bleeding. There actually are 2 superficial lacs measuring 1 cm in total.) - Eye Eye exam: Normal appearance, PERRL, EOMI - Respiratory Respiratory exam: Normal lung sounds bilaterally. negative: Respiratory distress - Cardiovascular Cardiovascular Exam: Regular rate, Normal rhythm, Normal heart sounds. negative : Irregular rhythm Course - Reevaluation(s) Reevaluation #1: Procedure note: The R periorbital lacs were anesth. with Lido 1% with Epi and prepped with betadine. The lacs were then cleansed with sterile saline and closed with a total of 3 5.0 nylon sutures. There were no complications. 01/08/18 18:15 Reevaluation #2: I did instruct the patient and family to use Tylenol for pain and to ice the area if needed. She is to hole her Eliquis for one day due to not being in Afib for some time. She is to have the sutures removed in 5-7 days. 01/08/18 18:16 Disposition Disposition: Discharge Clinical Impression: Laceration Head injury, acute Qualifiers: Encounter type: initial encounter Qualified Code(s): S09.90XA - Unspecified injury of head, initial encounter Disposition: Home, Self-Care Condition: (2) Stable Instructions: Laceration (ED) Additional Instructions: Please take Tylenol for pain and ice the painful areas when possible. Please return to the ER for any problems. Have the sutures removed in 5-7 days. Please hole your Eliquis for one day. Forms: Patient Portal Access Time of Disposition: 18:18 Quality - Quality Measures Quality Measures: N/A, Blunt Head Trauma (>2yr) - Blunt Head Trauma - Adult Quality Measure: Measure #415: Utilization of CT for Minor Blunt Head Trauma ICD10 Codes Entered: Yes View Details: Yes Was CT ordered: No David Score: Please complete [place] Coma Scale above Utilization of CT for Minor Blunt Head Trauma: Not Eligible For Measure Additional Inclusion Criteria: More than 24hrs (OR) GCS not 15 (OR) CT not ordered. Not Eligible Reason: CT Not Ordered - Blood Pressure Screening View Details: Yes Does Patient Have Any of the Following: Active Dx of HTN Blood Pressure Classification: Hypertensive Reading Systolic Measurement: 185 Diastolic Measurement: 94 Screening for High Blood Pressure: Patient Exclusion, Hx of HTN [G9744]
[2018-01-08] MEDS ORDERED: LIDOCAINE 1% W/EPI 1:200,000 MPF 30ML SQ ONE (17:49)
[2018-01-08] MEDS: TOPICAL LIDOCAINE W/ EPI 5 ML TOP ONE (17:51)
== END 2018-01-08 18:29 | disposition home or self-care (01) ==
LOC: ER 17:31
DX: S01.111A Laceration without foreign body of right eyelid and periocular area, initial encounter (principal); I10 Essential (primary) hypertension; I48.91 Unspecified atrial fibrillation; Z79.01 Long term (current) use of anticoagulants